=== PATIENT | male | born 2000 | race Caucasian/White ===

== ENCOUNTER 2023-08-18 22:35 | Emergency (ER) | payer MEDICAID, SELFPAY ==
--- NOTE | ~2023-08-18 | CT_ITS ---
EXAMINATION: CT ABDOMEN AND PELVIS WITH CONTRAST CLINICAL INFORMATION: Abdominal pain, leukocytosis COMPARISON: None available. TECHNIQUE: Multidetector volumetric images were obtained from the superior aspect of the liver through the pubic symphysis following administration 85 mL of Omnipaque 350 intravenous contrast. Sagittal and coronal reformatted images were obtained on the technologist's workstation. Oral contrast: No This CT examination was performed using dose optimization techniques as appropriate, variously including the following: *Automated exposure control *Adjustment of mA and/or kV according to patient size (this includes techniques or standardized protocols for targeted exams where dose is matched to indication/reason for exam; i.e. extremities or head) *Use of iterative reconstruction technique DLP: 404 mGy-cm FINDINGS: LUNG BASES: The visualized lung bases are unremarkable. LIVER, GALLBLADDER, AND BILIARY TREE: The liver is normal in size, shape, and attenuation. No focal hepatic lesion or biliary ductal dilatation is present. Gallbladder is contracted, suboptimally assessed. PANCREAS: Unremarkable. SPLEEN: Unremarkable. ADRENAL GLANDS: Unremarkable. KIDNEYS AND URETERS: Bilateral nephrograms are symmetric. No hydronephrosis or obstructing calculus identified. BLADDER: Mildly distended with diffuse mural prominence. GASTROINTESTINAL TRACT: No evidence of bowel obstruction. Limited evaluation for wall thickening in much of the colon due to luminal collapse. Appendix appears nondilated. No free fluid or free air is seen. ABDOMINAL WALL: No significant hernia is appreciated. LYMPH NODES: Normal. VASCULAR: Unremarkable. PELVIC VISCERA: Unremarkable. OSSEOUS STRUCTURES: Unremarkable. CT/CT abdomen pelvis w IV con IMPRESSION: 1. Diffuse mural prominence of the urinary bladder, which could reflect underdistention versus cystitis in the proper clinical setting. Correlation with urinalysis is recommended. 2. No additional acute findings identified in the abdomen/pelvis.
[2023-08-18 22:53] VITALS: BP 115/64; BP 132/88; PULSE 101; PULSE 112; RESP 20; TEMP 37.5; O2SAT 98; BMI 22.9
[2023-08-18 23:11] LABS: MANUAL DIFF FLAG NO
[2023-08-18 23:12] LABS: Basophils Percent Auto 0.2 % (0-2); Eosinophils Percent Auto 0.2 % (0-4); Hematocrit 42.3 % (42.0-52.0); Imm Gran Abs Auto 0.05 X10*3/uL (0.00-0.03); Imm Gran Pct Auto 0.4 % (0.0-0.4); Lymphocytes Absolute Auto 0.6 X10*3/uL (1.2-4.9); Lymphocytes Percent Auto 4.8 % (20-40); Mean Corpuscular HGB Conc 35.5 g/dl (31.0-36.0); Mean Corpuscular Hemoglobin 29.5 pg (27.0-33.0); Mean Corpuscular Volume 83.3 fL (80.0-98.0); Mean Platelet Volume 9.1 fL (9.4-12.4); Monocytes Absolute Auto 0.6 X10*3/uL (0.1-1.2); Monocytes Percent Auto 5.2 % (2-11); Neutrophils Absolute Auto 10.4 x10*3/uL (2.0-8.3); Neutrophils Percent Auto 89.2 % (45-73); Platelet Count 191 X10*3/uL (160-400); Red Blood Count 5.08 X10*6/uL (4.60-5.80); Red Cell Distribution Width 12.2 % (11.0-16.0); White Blood Count 11.6 X10*3/uL (4.8-10.8)
[2023-08-18 23:25] LABS: Alanine Aminotransferase 15 U/L (0-40); Albumin Level 4.7 g/dL (3.5-5.0); Alkaline Phosphatase 80 U/L (39-117); Anion Gap 17 (12-20); Aspartate Amino Transferase 15 U/L (5-37); Bilirubin Total 1.8 mg/dL (0.0-1.0); Blood Urea Nitrogen 9 mg/dL (9-16); Calcium 9.6 mg/dL (8.4-10.2); Carbon Dioxide 24 mmol/L (22-29); Chloride 104 mmol/L (96-108); Creatinine Clr Calc Pharmacy 108.6; Estimated Glomerular Filt Rate > 60; Glucose Random 101 mg/dL (60-115); Potassium 3.6 mmol/L (3.3-5.1); Sodium 141 mmol/L (135-145); Total Protein 7.7 g/dL (6.5-8.0)
[2023-08-18 23:38] LABS: Lipase 14 U/L (8-78)
[2023-08-18 23:48] LABS: Influenza A PCR NEGATIVE (Negative); Influenza B PCR NEGATIVE (Negative); Resp Syncy Virus RNA Qual PCR NEGATIVE (Negative); SARS COV2 PCR INHOUSE NEGATIVE (Negative)
--- NOTE | 2023-08-19 00:14 | ED.ABDPAIN ---
HPI - Abdominal Pain General Chief Complaint: Abdominal Pain Stated Complaint: ABD PAIN, N/V Time Seen by Provider: 08/19/23 00:13 Source: patient Mode of arrival: ambulatory Limitations: no limitations History of Present Illness HPI narrative: 23-year-old male presents with fatigue, malaise, myalgias, nausea, vomiting, diarrhea all of which started this morning. Patient reports he is also having associated abdominal pain, diffuse in nature, can not pinpoint 1 exact region of pain. Patient reports he was diagnosed with IBS and he feels like this may be a flare. He reports his diarrhea is completely liquid, no blood in stool or vomit. Denies fevers, chills, sick contacts, chest pain, shortness of breath, headache, vision changes, dizziness and weakness. Related Data Previous Rx's Medication Instructions Recorded ondansetron 4 mg disintegrating 4 mg PO Q6H PRN nausea and 08/19/23 tablet vomiting #14 tabs Allergies Allergy/AdvReac Type Severity Reaction Status Date / Time methylphenidate AdvReac Shakiness Verified 08/18/23 22:52 [From Ritalin] Review of Systems Review of Systems Yes all other systems are reviewed and are negative [facility] Past Medical History Attestation statement: The following information was validated with the patient. Source: old records reviewed and nursing notes reviewed Social History Social History Advance Directives: No Advance Directives Information Provided: No Physical Exam ED Vital Signs: Vital Signs - 24 hr 08/18/23 22:53 Temperature 99.5 F Pulse Rate 101 H Respiratory Rate 20 Blood Pressure 115/64 Pulse Oximetry 98 Oxygen Delivery Method Room Air BMI result Body Mass Index 22.9 vss Appearance: Alert.? Oriented X3.? No acute distress.? Head: Normocephalic, atraumatic, no step-offs or deformities Eyes: Pupils equal, round and reactive to light.? ENT: Pharynx normal.? Neck: Normal inspection.? Neck supple.? CVS: Normal heart rate and rhythm.? Pulses normal.? Respiratory: No respiratory distress.? Breath sounds normal.? Abdomen: Soft and diffuse abd. Normo active bs throughout.? Skin: Skin warm and dry.? Normal skin color.? Normal skin turgor.? Extremities: No lower extremity edema.? No calf ttp. 5/5 strength to bilateral upper and lower extremities Neuro: Oriented X 3.? No motor deficit.? No sensory deficit. CN 2-12 intact Course Reevaluation(s) Reevaluation #1: CBC with leukocytosis and slight left shift likely secondary to nausea and vomiting/reactive unlikely from infection. Chemistry unremarkable. Ct scan pending Time: 00:42 Reevaluation #2: Sign out to Dr. Romero. Pending imaging Time: 00:44 Medical Decision Making Medical Decision Making [facility] [place] Narrative: 0015 23 yo m presents w/ abd pain, nausea, vomiting, diarrhea X 1 day PE diffuse abdominal discomfort. Physical exam concerning for IBS versus IBD versus gastroenteritis versus viral illness versus flu versus COVID. Unlikely acute abdomen, obstruction, diverticulitis, pancreatitis, cholecystitis, appendicitis, mesenteric ischemia, dissection. Will rule out metabolic derangements. Unlikley kidney stone, pylo Plan labs, imaging, urine Differential Diagnosis Differential Diagnoses: The differential diagnosis associated with the presentation includes Physical exam concerning for IBS versus IBD versus gastroenteritis versus viral illness versus flu versus COVID. Unlikely acute abdomen, obstruction, diverticulitis, pancreatitis, cholecystitis, appendicitis, mesenteric ischemia, dissection. Will rule out metabolic derangements. Unlikley kidney stone, pylo Admission/Observation Consideration of admission/observation: Escalation of care including admission/observation considered Lab Data [facility] [place] Lab Attestation statement: I reviewed the patient's lab results. 08/18/23 23:05 08/18/23 23:05 Labs: Lab Results 08/18/23 Range/Units 23:05 WBC 11.6 H (4.8-10.8) X10*3/uL RBC 5.08 (4.60-5.80) X10*6/uL Hgb 15.0 (14.0-18.0) g/dl Hct 42.3 (42.0-52.0) % MCV 83.3 (80.0-98.0) fL MCH 29.5 (27.0-33.0) pg MCHC 35.5 (31.0-36.0) g/dl RDW 12.2 (11.0-16.0) % Plt Count 191 (160-400) X10*3/uL MPV 9.1 L (9.4-12.4) fL Immature Gran % (Auto) 0.4 (0.0-0.4) % Neut % (Auto) 89.2 H (45-73) % Lymph % (Auto) 4.8 L (20-40) % [place] % (Auto) 5.2 (2-11) % Eos % (Auto) 0.2 (0-4) % Baso % (Auto) 0.2 (0-2) % Lymph # (Auto) 0.6 L (1.2-4.9) X10*3/uL [place] # (Auto) 0.6 (0.1-1.2) X10*3/uL Eos # (Auto) 0.0 (0.0-0.4) X10*3/uL Baso # (Auto) 0.0 (0.0-0.2) X10*3/uL Abs Immat Gran (auto) 0.05 H (0.00-0.03) X10*3/uL Absolute Neuts (auto) 10.4 H (2.0-8.3) x10*3/uL Absolute Nucleated RBC 0.000 (0.0-0.012) X10*3/uL Nucleated RBC % (auto) 0.0 (0.0-0.2) /100WBC Sodium 141 (135-145) mmol/L Potassium 3.6 (3.3-5.1) mmol/L Chloride 104 (96-108) mmol/L Carbon Dioxide 24 (22-29) mmol/L Anion Gap 17 (12-20) BUN 9 (9-16) mg/dL Creatinine 0.98 (0.5-1.4) mg/dL Estim Creat Clear Calc 108.6 Estimated GFR > 60 Random Glucose 101 (60-115) mg/dL Calcium 9.6 (8.4-10.2) mg/dL Total Bilirubin 1.8 H (0.0-1.0) mg/dL AST 15 (5-37) U/L ALT 15 (0-40) U/L Alkaline Phosphatase 80 (39-117) U/L Total Protein 7.7 (6.5-8.0) g/dL Albumin 4.7 (3.5-5.0) g/dL Lipase 14 (8-78) U/L Influenza Type A (PCR) NEGATIVE (Negative) Influenza Type B (PCR) NEGATIVE (Negative) RSV RNA Qual (PCR) NEGATIVE (Negative) SARS-CoV-2 RNA (RT-PCR) NEGATIVE (Negative) Independent Interpretation I performed an independent interpretation of an: CT Scan Radiology Impression Discussion of test interpretation with radiology: I have reviewed the radiologist's reading. Chronic Conditions Patient?s care impacted by: Other (IBS ) Medications Administered Generic Name Dose Route Start Last Admin Trade Name Freq PRN Reason Stop Dose Admin Sodium Chloride 1,000 mls @ 999 mls/hr 08/19/23 00:30 08/19/23 00:30 Ns IV 08/19/23 01:30 999 mls/hr .Q1H1M JAIDA Administration Discontinued Medications Generic Name Dose Route Start Last Admin Trade Name Freq PRN Reason Stop Dose Admin Ketorolac Tromethamine 30 mg 08/19/23 00:21 08/19/23 00:33 Ketorolac Tromethamine 30 Mg/Ml Vial IVPUSH 08/19/23 00:22 30 mg ONCE ONE Administration Ondansetron HCl 4 mg 08/19/23 00:21 08/19/23 00:33 Ondansetron Hcl 4 Mg/2 Ml Vial IVPUSH 08/19/23 00:22 4 mg ONCE ONE Administration Critical Care Time Critical Care Time Critical Care Time: Yes Total Critical Care Time: 35 Attestation: I attest to this time spent taking care of the patient, obtaining history, physical, reviewing labs, imaging, speaking to my attending, speaking to specialist. Discharge Plan Discharge Clinical Impression: Abdominal pain, Nausea & vomiting, Diarrhea Patient Disposition: Still a Patient Instructions: Abdominal Pain (ED), Acute Nausea and Vomiting (ED) Additional Instructions: Take your medications as prescribed. If you were prescribed antibiotics today, it is important that you take your medication to their entirety, do not skip any doses, do not finish them early. Follow-up with your primary care provider this week. Return to the emergency department with new or worsening symptoms. Such as fevers, chills, chest pain, shortness of breath, nausea, vomiting, dizziness, headache, vision changes, lethargy In case of emergency call 911 Zofran has been sent for nausea and vomiting. Please take this as prescribed. Prescriptions: New ondansetron 4 mg tablet,disintegrating 4 mg PO Q6H PRN (Reason: nausea and vomiting) Qty: 14 0RF Referrals: Physician,None [Primary Care Provider] - 2 days
[2023-08-19] MEDS: 0.9 % Sodium Chloride 1,000 ML 999 ML IV ×2 (00:30→06:07)
[2023-08-19] MEDS: Ketorolac Tromethamine 30 MG/ML VIAL IVPUSH (00:33)
[2023-08-19] MEDS: ondansetron HCL 4 MG/2 ML VIAL IVPUSH (00:33)
--- NOTE | 2023-08-19 01:12 | PC.NURSE ---
#20 IV L-AC, IV fluids running and medications administered as ordered.
[2023-08-19] MEDS: iohexoL 350 MG/ML 100 ML INFUS..BTL 85 ML IV (01:37)
[2023-08-19 03:00] VITALS: BP 102/53; PULSE 73; RESP 14; TEMP 37.1; O2SAT 98
[2023-08-19] MEDS: diphenhydrAMINE HCL 50 MG/ML VIAL 25 MG IVPUSH (04:46)
[2023-08-19] MEDS: Prochlorperazine Edisylate 10 MG/2 ML VIAL IVPUSH (04:53)
[2023-08-19 06:06] VITALS: BP 106/71; PULSE 84; RESP 16; TEMP 36.9; O2SAT 98
[2023-08-19] MEDS: LORazepam 2 MG/ML VIAL 1 MG IVPUSH (06:07)
[2023-08-19 06:10] LABS: Appearance Urine Clear; Color Urine Dark Yellow; Glucose Urine UA Negative (Negative); Leukocyte Esterase Urine Negative (Negative); Nitrite Urine Negative (Negative); PH 5.5 (5.0-9.0); Specific Gravity - Urine >= 1.030 (1.005-1.025); UMIC TRIGGER UACC YES; Urine Blood Negative (Negative); Urine Ketones Negative (Negative); Urine Protein 30 (1+) mg/dL (Neg-Trace)
[2023-08-19 06:16] LABS: Amphetamine Screen Urine Not Detected (Not Detect); Barbiturates, Urine Not Detected (Not Detect); Benzodiazepines Screen Urine Not Detected (Not Detect); Cannabinoid Screen Urine POSITIVE (Not Detect); Cocaine Screen Urine Not Detected (Not Detect); Fentanyl, urine Not Detected (Not Detect); Opiate Screen Urine Not Detected (Not Detect); Phencyclidine Screen Urine Not Detected (Not Detect)
[2023-08-19 06:26] LABS: Bacteria Urine None Seen (None Seen); Hyaline Casts Urine 0-2 /LPF (0-2); RBC Urine 0-2 /HPF (0-2); Squamous Epithelial Cell Urine 0-2 /HPF (0-2); WBC Urine 0-5 /HPF (0-5)
[2023-08-19 07:36] VITALS: BP 108/64; PULSE 60; RESP 16; TEMP 36.8; O2SAT 99
== END 2023-08-19 07:50 | disposition home or self-care (01) ==
PROVIDERS: Physician Assistant; Emergency Provider Emergency Medicine
DX: R11.15 Cyclical vomiting syndrome unrelated to migraine (principal); F12.19 Cannabis abuse with unspecified cannabis-induced disorder; M79.10 Myalgia, unspecified site; R11.2 Nausea with vomiting, unspecified; R10.9 Unspecified abdominal pain; Z11.52 Encounter for screening for COVID-19; Z20.822 Contact with and (suspected) exposure to COVID-19; Z79.899 Other long term (current) drug therapy
CPT/HCPCS: 0241U; 36415; 74177; 80053; 80307; 81001; 83690; 85025; 96361; 96374; 96375; 99284; 99285; J0737; J1200; J1885; J2060; J2405; Q9967

== ENCOUNTER 2024-09-16 14:28 | Outpatient (REF) | payer OTHER, SELFPAY ==
--- OUTSIDE RECORDS SUMMARY | 2024-09-16 15:47 | XMS_ITS | Clinical Summary ---
Author Organization [facility] Address [address] [place] [address] Care Team Providers Care Radio Recorder Name Role Phone Patient, Has No Pcp Or Ref Primary Care Provider Unavailable Allergies No known active allergies Medications ondansetron (ZOFRAN) 4 mg tablet Take 1 tablet (4 mg total) by mouth every 6 hours. 12 tablet 08/06/2022 Active famotidine (PEPCID) 20 mg tablet Take 1 tablet (20 mg total) by mouth 2 times a day. 30 tablet 08/06/2022 Active Social History Tobacco Use Types Packs/Day Years Used Date Smoking Tobacco: Never Smokeless Tobacco: Never Tobacco Cessation:Counseling Given: Not Answered Alcohol Use Standard Drinks/Week Comments Yes 0 (1 standard drink = 0.6 oz pur e alcohol) occasionally Sex and Gender Information Value Date Recorded Sex Assigned at Not on file Legal Sex Male 3:22 AM EDT Gender Identity Not on file Sexual Orientation Not on file Last Filed Vital Signs Vital Sign Reading Time Taken Comments Blood Pressure 124/70 08/06/2022 6:26 AM EDT Pulse 97 08/06/2022 6:26 AM EDT Temperature 36.9 ??C (98.4 ??F) 08/06/2022 3:31 AM ED T Respiratory Rate 18 08/06/2022 6:26 AM EDT Oxygen Saturation 99% 08/06/2022 3:31 AM EDT Inhaled Oxygen Concentration - - Weight 54.4 kg (120 lb) 08/06/2022 3:31 AM EDT Height 172.7 cm (5' 8 ) 08/06/2022 3:31 AM EDT Body Mass Index 18.25 08/06/2022 3:31 AM EDT Plan of Treatment Health Maintenance Due Date Last Done Comments HIV Screening 1999 Hepatitis C Screening 1999 Varicella Vaccines (1 of 2 - 13+ 2-dose series) 08/10/2012 HPV Vaccines (3 - Male 3-dos e series) 06/10/2015 03/18/2015, 10/18/2014 Hepatitis B Vaccines (1 of 3 - 19+ 3-dose series) 08/10/2018 DTaP,Tdap,and Td Vaccines (1 - Tdap) 08/10/2021 COVID-19 Vaccine (2 - 2023-2 5 season) 2024 01/12/2021 Alcohol/Substance Use Screening 05/20/2024 Depression Screening and Follow-Up 05/20/2024 Social Drivers of Health Annual Screening 05/20/2024 Influenza Vaccine (Season Ended) 2025 03/18/2015 RSV Vaccine (60+ years old and patients) (1 - 1-dose 75+ series) 08/10/2074 Pneumococcal Vaccine: Pediatric (0-5 Years) and At-Risk Patients (6-50 Years) Aged Out No longer eligible based on patient's age to complete this topic Care Teams Radio Recorder Relationship Specialty Start Date End Date Patient, Has No Pcp Or Ref DO NOT EDIT THIS RECORD VIA PROVIDER ON THE FLY PCP - General Monorail Hooker 08/06/22
--- OUTSIDE RECORDS SUMMARY | 2024-09-16 15:47 | XMS_ITS | Referral Summary ---
Author Organization [facility] Address [address] [place] [address] Care Team Providers Care Edger Tailer Name Role Phone Patient, Has No Pcp [...] 08/06/2022 3:31 AM EDT Plan of Treatment Not on file Care Teams Edger Tailer Relationship Specialty Start Date End Date Patient, Has No Pcp Or Ref DO NOT EDIT THIS RECORD VIA PROVIDER ON THE FLY PCP - General Adaptive Physical Educator 08/06/22
[2024-09-16 16:38] LABS: Alanine Aminotransferase 18 U/L (0-40); Albumin Level 4.8 g/dL (3.5-5.0); Alkaline Phosphatase 71 U/L (39-117); Anion Gap 11 (12-20); Aspartate Amino Transferase 19 U/L (5-37); Bilirubin Direct 0.2 mg/dL (0.0-0.5); Bilirubin Total 0.6 mg/dL (0.0-1.0); Blood Urea Nitrogen 8 mg/dL (9-16); Calcium 9.7 mg/dL (8.4-10.2); Carbon Dioxide 29 mmol/L (22-29); Chloride 103 mmol/L (96-108); Estimated Glomerular Filt Rate > 60; Glucose Random 87 mg/dL (60-115); Potassium 4.1 mmol/L (3.3-5.1); Sodium 139 mmol/L (135-145); Total Protein 7.6 g/dL (6.5-8.0)
[2024-09-16 16:50] LABS: Thyroid Stimulating Hormone 0.88 uIU/mL (0.32-4.0)
== END 2024-09-16 14:29 | disposition home or self-care (01) ==
LOC: HO.HHCL 14:28
PROVIDERS: Visit Provider Dietitian, Registered
DX: F32.A Depression, unspecified (principal)
CPT/HCPCS: 36415; 80053; 82248; 84443